=== PATIENT | male | born 1960 | race Caucasian/White ===

== ENCOUNTER 2017-07-15 19:56 | Emergency (ER) | payer SELFPAY ==
[2017-07-15] MEDS: TETRACAINE HCL/PF 5% OPTH SOL OP ONE ×2 (20:06→20:15)
[2017-07-15 20:14] VITALS: BP 133/85
--- NOTE | 2017-07-15 20:22 | ED Physician Documentation ---
Eye Trauma - HISTORIAN Historian: patient - HPI Stated Complaint: L EYE Chief Complaint: Eye Trauma Additional Information: wood working and piece of wood or dust went in his left eye, still with FB sensation Onset: minutes Associated symptoms: pain, foreign body Location: left eye Severity: mild Apparent Injury: possibly Context: foreign body Where: home Further Comments: no - ROS CONST: no problems MS/SKIN/LYMPH: denies: weakness, numbness, rash CVS/RESP: none EYES/ENT: none GI/: denies: problems urinating, nausea NEURO: denies: headache - PAST HX Past History: none Allergies/Adverse Reactions: Allergies Allergy/AdvReac Type Severity Reaction Status Date / Time Penicillins Allergy Verified 07/15/17 20:14 Home Medications: Ambulatory Orders Medication Instructions Recorded NK [NK] 07/15/17 - SOCIAL HX Smoking History: non-smoker Alcohol Use: none Drug Use: none - FAMILY HX Family History: none - VITAL SIGNS Vital Signs: Vital Signs Temp Pulse Resp BP Pulse Ox 98.4 F 92 H 16 133/85 98 07/15/17 19:56 07/15/17 19:56 07/15/17 19:56 07/15/17 19:56 07/15/17 19:56 - REVIEWED ASSESSMENTS Nursing Assessment Reviewed: Yes Vitals Reviewed: Yes ED Results Lab/Radiology - Orders Orders: ED Orders Category Date Time Status Tetracaine HCl/Pf [Pontocaine 5% Opth] Med 07/15/17 20:04 Discontinued 2 drop OP NOW ONE Tetracaine HCl/Pf [Pontocaine 5% Opth] Med 07/15/17 20:03 Discontinued 30 drop OP .STK-MED ONE Eye Trauma Physical Exam - Physical Exam General Appearance: no acute distress, alert Examined with Slit Lamp: No Visual Acuity: see nursing assessment Eyelids: nml inspection, everted for exam (L). No: foreign body under eyelid (L ) Conjunctiva and Sclera: nml inspection Corneas: nml inspection, examined with fluorescein (L). No: foreign body (L), abrasion (L), fluorescein dye uptake (L) EOM's: intact Pupils: PERRL, nml accommodation Head/ENT: nml inspection Skin: nml color, warm Neck/Back: nml inspection Respiratory: no resp distress Neuro/Psych: oriented x3, neuro intact, mood/affect nml Discharge Clincal Impression: Foreign body, eye Qualifiers: Encounter type: initial encounter Laterality: left Qualified Code(s): T15.92XA - Foreign body on external eye, part unspecified, left eye, initial encounter Referrals: Primary Doctor,No [Primary Care Provider] - 2 Days Condition: Good Disposition: 01 HOME, SELF-CARE Decision to Admit: NO Date of Decison to Admit: 07/15/17 Decision Time: 20:30
== END 2017-07-15 20:30 | disposition home or self-care (01) ==
LOC: ED 19:56
DX: T15.92XA Foreign body on external eye, part unspecified, left eye, initial encounter (principal); X58.XXXA Exposure to other specified factors, initial encounter; Y93.89 Activity, other specified; Y92.9 Unspecified place or not applicable; Y99.9 Unspecified external cause status
CPT/HCPCS: 99282